=== PATIENT | female | born 1985 | race Caucasian/White ===

== ENCOUNTER → 2023-05-31 | Emergency (ER) | payer MEDICAID ==
[~2023-05-31] VITALS: Ht 162.6 cm; Wt 112.0 kg
[2023-05-31 15:19] VITALS: BP 135/74; PULSE 84; TEMP 97.4; O2SAT 98
[2023-05-31 15:42] VITALS: RESP 18
== END | disposition home or self-care (01) ==
LOC: ER 15:01
DX: L29.8 Other pruritus (principal)
CPT/HCPCS: 99282